=== PATIENT | female | born 1980 | race Caucasian/White ===

== ENCOUNTER 2018-11-07 01:50 | Emergency (ER) | payer OTHER ==
[~2018-11-07] VITALS: Ht 167.6 cm; Wt 59.0 kg
[2018-11-07 02:09] VITALS: BP 114/74
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
[2018-11-07 02:30] VITALS: BP 114/74
--- NOTE | 2018-11-07 02:30 | NUR ---
ER Nurse Note: Pt seen, treated, medically cleared for discharge by ER MD. Discharge instuctions given with repeat verbalization by pt. Emphasized to follow up with primay care provider. All orders completed per ERMD orders. Pt a&ox4, VSS, no signs of distress. ID band removed. Pt refused to sign homeless discharge form; pt upset about the treatment process. Pt refused to tell her location of stay. Pt was offered food and water. Pt has approrate clothing. Pt left with all belongings, left with own transportation.
== END 2018-11-07 02:30 | disposition home or self-care (01) ==
LOC: EMR 02:23
DX: F29 Unspecified psychosis not due to a substance or known physiological condition (principal); Z88.6 Allergy status to analgesic agent; Z88.0 Allergy status to penicillin; Z88.2 Allergy status to sulfonamides
CPT/HCPCS: 99281